=== PATIENT | male | born 1945 | race Caucasian/White ===

== ENCOUNTER 2023-03-29 22:05 | Emergency (ER) | payer OTHER ==
[2023-03-29] MEDS ORDERED: ALTEPLASE 100MG 100 ML ONE (22:15)
[2023-03-29 22:37] LABS: INR 1.29 (0.83-1.09); PROTHROMBIN TIME (PATIENT) 14.9 SEC (9.7-13.0)
[2023-03-29 22:40] LABS: ACTIVATED PTT 32.7 SECONDS (25.2-36.5)
[2023-03-29 22:48] LABS: CHLORIDE 101 mmol/L (98-107); SODIUM 139 mmol/L (136-145)
[2023-03-29 22:51] LABS: ANION GAP 22 MMOL/L (8-16); BLOOD UREA NITROGEN 43.9 mg/dL (7-18); CO2 17 mmol/L (21-32); MAGNESIUM 2.7 mg/dL (1.8-2.4)
[2023-03-29 22:54] LABS: CREATININE 3.1 mg/dL (0.55-1.3); SGOT/AST 345 U/L (15-37); SGPT/ALT 306 U/L (13-61)
[2023-03-29 22:55] LABS: BASO % 0.7 % (0-2.0); BILIRUBIN,TOTAL 0.3 mg/dL (0.2-1); EOS % 1.1 % (0-4.5); HEMATOCRIT 43.9 % (35.4-49); HEMOGLOBIN 13.5 GM/dL (11.7-16.9); LYMPH % 49.5 % (8-40); MCH 29.2 pg (25.7-33.7); MCHC 30.7 g/dl (32.0-35.9); MEAN CELL VOLUME 95.2 fl (80-96); MEAN PLT VOLUME 7.5 fl (7.5-11.1); MONO % 4.4 % (3.8-10.2); NEUT % 44.3 % (42.8-82.8); PLATELET COUNT 196 10^3/uL (134-434); RBC 4.61 M/mm3 (4.00-5.60); RDW 18.1 % (11.9-15.9); TOT PROT 5.8 g/dl (6.4-8.2); WHITE BLOOD COUNT 6.4 K/mm3 (4.0-10.0)
[2023-03-29 22:56] LABS: ALK PHOS 82 U/L (45-117)
[2023-03-29 22:57] LABS: GLUCOSE,RANDOM 709 mg/dL (74-106)
[2023-03-29 23:08] VITALS: BP 00/00; PULSE 0; RESP 0; BMI 34.4
[2023-03-29 23:30] LABS: ANISOCYTOSIS 2+; MACROCYTOSIS 0
== END 2023-03-30 01:05 | disposition expired ==
LOC: JER 22:05
PROC: 05HN33Z Insertion of Infusion Device into Left Internal Jugular Vein, Percutaneous Approach (ICD-10-PCS; principal; 2023-03-29)
DX: I26.99 Other pulmonary embolism without acute cor pulmonale (principal); Z20.822 Contact with and (suspected) exposure to COVID-19
CPT/HCPCS: 0241U-QW; 36415; 80053; 82962; 83735; 84484; 85025; 85379; 85610; 85730; 99291